=== PATIENT | male | born 1980 | race American Indian/Alaskan Native ===

== ENCOUNTER 2017-03-10 13:32 | Emergency (ER) | payer MEDICAID, OTHER ==
[2017-03-10 13:40] VITALS: BP 115/65
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
[2017-03-10 14:26] LABS: CHLORIDE,CL 112 mmol/L (101-111); SODIUM,NA 148 mmol/L (135-145)
== END 2017-03-10 15:15 | disposition home or self-care (01) ==
LOC: DL.ED 13:32
DX: S00.81XA Abrasion of other part of head, initial encounter (principal); F10.129 Alcohol abuse with intoxication, unspecified; Y90.8 Blood alcohol level of 240 mg/100 ml or more; G43.909 Migraine, unspecified, not intractable, without status migrainosus; Z98.890 Other specified postprocedural states; Y04.0XXA Assault by unarmed brawl or fight, initial encounter; Y92.411 Interstate highway as the place of occurrence of the external cause
CPT/HCPCS: 36415; 70486; 80053; 85025; 99284; G0480

== ENCOUNTER 2017-05-29 09:56 | Emergency (ER) | payer MEDICAID, OTHER ==
[2017-05-29 11:15] VITALS: BP 140/98
[2017-05-29] MEDS ORDERED: HYDROmorphone 1 MG/ML Syringe IM ONE (11:28)
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
--- NOTE | 2017-05-29 12:35 | CR ---
Clinical history: 36-year-old male injured right thumb (changing tire). Interpretation: Mild soft tissue swelling. No foreign bodies. No fracture or dislocation right thumb or the adjacent index finger. Apparent old healed (boxers) fracture deformity fifth metacarpal.
== END 2017-05-29 11:56 | disposition home or self-care (01) ==
LOC: DL.ED 09:56
DX: S60.011A Contusion of right thumb without damage to nail, initial encounter (principal); Z98.890 Other specified postprocedural states; X58.XXXA Exposure to other specified factors, initial encounter
CPT/HCPCS: 73140; 96372; 99283; J1170

== ENCOUNTER 2017-07-30 14:18 | Emergency (ER) | payer MEDICAID, OTHER ==
[2017-07-30] MEDS ORDERED: Lidocaine 1% 30 ML SDV INJECT ONE (14:20)
[2017-07-30] MEDS ORDERED: Bacitracin Oint 1 GM U/D Packet TOP ONE (14:20)
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
[2017-07-30 14:29] VITALS: BP 125/66
[2017-07-30] MEDS ORDERED: Acetaminophen/oxyCODONE 325-5 MG Tab PO ONE (15:04)
== END 2017-07-30 15:15 | disposition home or self-care (01) ==
LOC: DL.ED 14:18
DX: S51.812A Laceration without foreign body of left forearm, initial encounter (principal); W26.8XXA Contact with other sharp object(s), not elsewhere classified, initial encounter
CPT/HCPCS: 12002; 99282; A9270

== ENCOUNTER 2019-08-08 20:23 | Emergency (ER) | payer SELFPAY ==
[2019-08-08 20:46] VITALS: BP 116/74; PULSE 81
[2019-08-08] MEDS ORDERED: Bacitracin Oint 1 GM U/D Packet TOP ONE (20:50)
[2019-08-08] MEDS ORDERED: Lidocaine 1% with EPINEPHrine 1:100,000 20 ML MDV INJECT ONE (20:50)
[2019-08-08 21:02] LABS: ANION GAP 12.8; CHLORIDE,CL 112 mmol/L (101-111); SODIUM,NA 143 mmol/L (135-145)
[2019-08-08] MEDS ORDERED: Diphtheria,Pertussis(Acell),Tetanus Vaccine 0.5 ML SDV IM ONE (21:03)
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
== END 2019-08-08 21:30 ==
LOC: DL.ED 20:23
DX: S01.81XA Laceration without foreign body of other part of head, initial encounter (principal); F10.129 Alcohol abuse with intoxication, unspecified; Y90.8 Blood alcohol level of 240 mg/100 ml or more; Z23 Encounter for immunization; W20.8XXA Other cause of strike by thrown, projected or falling object, initial encounter
CPT/HCPCS: 12011; 36415; 70450; 72125; 80053; 85025; 90471; 90715; 99283; 99284-25; G0480

== ENCOUNTER 2019-10-14 16:43 | Emergency (ER) | payer SELFPAY ==
[2019-10-14 16:53] VITALS: BP 148/102; PULSE 91
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
== END 2019-10-14 19:05 | disposition home or self-care (01) ==
LOC: DL.ED 16:43
DX: M25.531 Pain in right wrist (principal); M79.641 Pain in right hand; F17.210 Nicotine dependence, cigarettes, uncomplicated; W19.XXXA Unspecified fall, initial encounter
CPT/HCPCS: 73130-RT; 99282; 99283-25

== ENCOUNTER 2019-11-18 00:34 | Emergency (ER) | payer SELFPAY ==
[2019-11-18 00:44] VITALS: BP 130/73; PULSE 84
[2019-11-18] MEDS ORDERED: Ibuprofen 600 MG Tab PO ONE (01:04)
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
== END 2019-11-18 01:09 | disposition home or self-care (01) ==
LOC: DL.ED 00:34
DX: S00.212A Abrasion of left eyelid and periocular area, initial encounter (principal); Y04.0XXA Assault by unarmed brawl or fight, initial encounter
CPT/HCPCS: 99282; A9270

== ENCOUNTER 2020-06-15 18:06 | Emergency (ER) | payer SELFPAY ==
[2020-06-15] MEDS ORDERED: Sodium Chloride 0.9% 1,000 ML IV ONE (18:16)
[2020-06-15] MEDS ORDERED: Sodium Chloride 0.9% 10 ML Syringe FLUSH PRN (18:17)
[2020-06-15] MEDS ORDERED: fentaNYL 100 MCG/2 ML SDV IVPUSH ONE (18:17)
[2020-06-15 18:35] VITALS: BP 111/72; PULSE 95
[2020-06-15 18:56] LABS: ANION GAP 14.7 mEq/L (7-13); CHLORIDE,CL 105 mmol/L (98-107); SODIUM,NA 141 mmol/L (136-145)
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
== END 2020-06-15 19:00 | disposition left against medical advice (07) ==
LOC: DL.ED 18:06
DX: Z53.21 Procedure and treatment not carried out due to patient leaving prior to being seen by health care provider (principal)
CPT/HCPCS: 36415; 74176; 80053; 80305; 81003; 85025; J3010; J7030

== ENCOUNTER 2020-10-26 02:05 | Emergency (ER) | payer SELFPAY ==
[2020-10-26 02:14] VITALS: BP 94/69; PULSE 80
[2020-10-26] MEDS ORDERED: Iopamidol 612 MG/ML 100 ML Bottle IVPUSH ONE (02:21)
[2020-10-26] MEDS ORDERED: Ondansetron 4 MG/2 ML SDV ONE (02:24)
[2020-10-26] MEDS ORDERED: Ondansetron 4 MG/2 ML SDV IVPUSH ONE (02:24)
[2020-10-26 02:48] LABS: ANION GAP 23.7 mEq/L (7-13)
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
[2020-10-26] MEDS ORDERED: MVI, Adult with Vitamin K 10 ML, Folic Acid 1 MG, Thiamine 100 MG in Lactated Ringers 1... IV ONE ×4 (05:40)
[2020-10-26] MEDS ORDERED: Sodium Chloride 0.9% 1,000 ML IV ONE (07:07)
== END 2020-10-26 08:39 ==
LOC: DL.ED 02:05
DX: S01.01XA Laceration without foreign body of scalp, initial encounter (principal); S40.012A Contusion of left shoulder, initial encounter; F15.90 Other stimulant use, unspecified, uncomplicated; F10.129 Alcohol abuse with intoxication, unspecified; Y90.6 Blood alcohol level of 120-199 mg/100 ml; Y04.0XXA Assault by unarmed brawl or fight, initial encounter
CPT/HCPCS: 12002; 36415; 70450; 71260; 72125; 72128; 72131; 73090; 74177; 80053; 80305; 80307; 81001; 82150; 83690; 85025; 85610; 96365; 96375; 99284; J2405; J3411; J7030; J7120; Q9967; 99283; J3490

== ENCOUNTER 2020-12-14 13:41 | Emergency (ER) | payer SELFPAY ==
[2020-12-14 13:49] VITALS: BP 139/91; PULSE 87
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
[2020-12-14] MEDS ORDERED: Ibuprofen 600 MG Tab PO ONE (15:10)
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
== END 2020-12-14 15:19 | disposition home or self-care (01) ==
LOC: DL.ED 13:41
DX: S63.91XA Sprain of unspecified part of right wrist and hand, initial encounter (principal); Z72.0 Tobacco use; Y04.0XXA Assault by unarmed brawl or fight, initial encounter
CPT/HCPCS: 73130; 99282; 99283; A9270

== ENCOUNTER 2020-12-22 23:07 | Emergency (ER) | payer SELFPAY ==
[2020-12-22 23:22] VITALS: BP 106/70; PULSE 112
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
[2020-12-22 23:51] LABS: ANION GAP 17.6 mEq/L (7-13); CHLORIDE,CL 107 mmol/L (98-107); SODIUM,NA 143 mmol/L (136-145)
[2020-12-22 23:53] LABS: ACETAMINOPHEN 0 ug/mL (10-30 (Therapeutic))
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
== END 2020-12-23 00:15 | disposition home or self-care (01) ==
LOC: DL.ED 23:07
DX: S60.221A Contusion of right hand, initial encounter (principal); S20.211A Contusion of right front wall of thorax, initial encounter; S00.03XA Contusion of scalp, initial encounter; F10.10 Alcohol abuse, uncomplicated; Y90.8 Blood alcohol level of 240 mg/100 ml or more; Z72.0 Tobacco use; Y04.0XXA Assault by unarmed brawl or fight, initial encounter
CPT/HCPCS: 36415; 70450; 71101-RT; 73130-RT; 80053; 80143; 80179; 80307; 83735; 85025; 99283; 99284-25

== ENCOUNTER 2021-01-01 00:21 | Emergency (ER) | payer SELFPAY ==
[2021-01-01 00:44] VITALS: BP 134/84; PULSE 103
[2021-01-01] MEDS ORDERED: MVI, Adult with Vitamin K 10 ML, Folic Acid 1 MG, Thiamine 100 MG in Lactated Ringers 1... IV ONE ×4 (00:48)
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
== END 2021-01-01 02:18 | disposition home or self-care (01) ==
LOC: DL.ED 00:21
DX: S60.221A Contusion of right hand, initial encounter (principal); F10.929 Alcohol use, unspecified with intoxication, unspecified; Y90.6 Blood alcohol level of 120-199 mg/100 ml; W22.8XXA Striking against or struck by other objects, initial encounter
CPT/HCPCS: 36415; 73130-RT; 80307; 96365; 99283; 99284-25; J3411; J3490; J7120

== ENCOUNTER 2021-01-02 18:20 | Emergency (ER) | payer SELFPAY ==
[2021-01-02] MEDS ORDERED: Sodium Chloride 0.9% 10 ML Syringe FLUSH PRN (18:23)
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
[2021-01-02 18:52] VITALS: PULSE 80
[2021-01-02 19:01] LABS: ANION GAP 14.7 mEq/L (7-13); CHLORIDE,CL 107 mmol/L (98-107); SODIUM,NA 141 mmol/L (136-145)
[2021-01-02 19:08] LABS: PTT,PARTIAL THROMBOPLSTIN TIME 26.1 SEC (22.0-34.0)
== END 2021-01-02 18:49 | disposition left against medical advice (07) ==
LOC: DL.ED 18:20
DX: R47.81 Slurred speech (principal); F10.10 Alcohol abuse, uncomplicated
CPT/HCPCS: 36415; 70450; 80053; 80305-QW; 81003; 84484; 85025; 85610; 85730; 99282; 99285-25

== ENCOUNTER 2021-02-15 14:01 | Emergency (ER) | payer SELFPAY ==
[2021-02-15] MEDS ORDERED: Sodium Chloride 0.9% 1,000 ML IV ONE (14:15)
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
[2021-02-15] MEDS ORDERED: MVI, Adult with Vitamin K 10 ML, Thiamine 100 MG, Folic Acid 1 MG in Lactated Ringers 1... IV ONE ×4 (14:19)
[2021-02-15 14:42] VITALS: BP 110/77; PULSE 62
[2021-02-15 14:45] LABS: ANION GAP 15.6 mEq/L (7-13); CHLORIDE,CL 108 mmol/L (98-107); SODIUM,NA 146 mmol/L (136-145)
== END 2021-02-15 16:30 | disposition home or self-care (01) ==
LOC: DL.ED 14:01
DX: F10.129 Alcohol abuse with intoxication, unspecified (principal); F15.129 Other stimulant abuse with intoxication, unspecified; Y90.8 Blood alcohol level of 240 mg/100 ml or more
CPT/HCPCS: 36415; 80053; 80305-QW; 80307; 81003; 83605; 83735; 85025; 86140; 96365; 99283; 99285-25; J3411; J3490; J7030; J7120

== ENCOUNTER 2021-02-26 19:50 | Emergency (ER) | payer SELFPAY ==
[2021-02-26 19:37] VITALS: BP 124/78; PULSE 87
[2021-02-26 20:05] LABS: ANION GAP 16.3 mEq/L (7-13); CHLORIDE,CL 108 mmol/L (98-107); SODIUM,NA 145 mmol/L (136-145)
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
== END 2021-02-26 20:29 | disposition left against medical advice (07) ==
LOC: DL.ED 19:50
DX: S21.131A Puncture wound without foreign body of right front wall of thorax without penetration into thoracic cavity, initial encounter (principal); S10.91XA Abrasion of unspecified part of neck, initial encounter; F10.129 Alcohol abuse with intoxication, unspecified; Y90.8 Blood alcohol level of 240 mg/100 ml or more; X58.XXXA Exposure to other specified factors, initial encounter
CPT/HCPCS: 36415; 71045; 80053; 80307; 85025; 99283; 99285-25

== ENCOUNTER 2021-03-07 15:27 | Emergency (ER) | payer SELFPAY ==
[2021-03-07 15:46] VITALS: BP 130/82; PULSE 94
[2021-03-07] MEDS ORDERED: Iopamidol 612 MG/ML 100 ML Bottle IVPUSH ONE (15:50)
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
[2021-03-07 16:44] LABS: ANION GAP 19.7 mEq/L (7-13); CHLORIDE,CL 103 mmol/L (98-107); SODIUM,NA 143 mmol/L (136-145)
[2021-03-07] MEDS ORDERED: Morphine 2 MG/ML SYRINGE IVPUSH ONE (17:06)
[2021-03-07 17:10] LABS: AMPHETAMINES,URINE NEGATIVE (NEGATIVE); BARBITURATES,URINE NEGATIVE (NEGATIVE); BENZODIAZEPINE,URINE NEGATIVE (NEGATIVE); MDMA (ECSTASY), URINE NEGATIVE (NEGATIVE); METHADONE,URINE NEGATIVE (NEGATIVE); METHAMPHETAMINES,URINE POSITIVE (NEGATIVE); OPIATES,URINE NEGATIVE (NEGATIVE); OXYCODONE,URINE NEGATIVE (NEGATIVE); PHENCYCLIDINE,URINE NEGATIVE (NEGATIVE); TCA,URINE NEGATIVE (NEGATIVE)
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
[2021-03-07] MEDS ORDERED: HYDROmorphone 0.5 MG/0.5 ML Syringe IVPUSH ONE (18:50)
== END 2021-03-07 19:24 | disposition home or self-care (01) ==
LOC: DL.ED 15:27
DX: L02.213 Cutaneous abscess of chest wall (principal); L03.313 Cellulitis of chest wall
CPT/HCPCS: 36415; 71260; 80053; 80305-QW; 80307; 81001; 84484; 85025; 85379; 93005; 96365; 96375; 99283; 99285-25; J1170; J2270; J3370; J7050; Q9967

== ENCOUNTER 2021-03-10 03:37 | Emergency (ER) | payer OTHER ==
[2021-03-10 03:59] VITALS: BP 127/77; PULSE 92
[2021-03-10] MEDS ORDERED: Ketorolac 30 MG/ML SDV IVPUSH ONE (04:12)
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
[2021-03-10 04:34] LABS: ANION GAP 19.4 mEq/L (7-13); CHLORIDE,CL 104 mmol/L (98-107); SODIUM,NA 145 mmol/L (136-145)
[2021-03-10 05:20] LABS: AMPHETAMINES,URINE NEGATIVE (NEGATIVE); BARBITURATES,URINE NEGATIVE (NEGATIVE); BENZODIAZEPINE,URINE NEGATIVE (NEGATIVE); MDMA (ECSTASY), URINE NEGATIVE (NEGATIVE); METHADONE,URINE NEGATIVE (NEGATIVE); METHAMPHETAMINES,URINE POSITIVE (NEGATIVE); OPIATES,URINE NEGATIVE (NEGATIVE); OXYCODONE,URINE POSITIVE (NEGATIVE); PHENCYCLIDINE,URINE NEGATIVE (NEGATIVE); TCA,URINE NEGATIVE (NEGATIVE)
== END 2021-03-10 06:11 | disposition home or self-care (01) ==
LOC: DL.ED 03:37
DX: S21.101D Unspecified open wound of right front wall of thorax without penetration into thoracic cavity, subsequent encounter (principal); F10.10 Alcohol abuse, uncomplicated; Y90.8 Blood alcohol level of 240 mg/100 ml or more; Z91.14 Patient's other noncompliance with medication regimen; W34.010D Accidental discharge of airgun, subsequent encounter
CPT/HCPCS: 36415; 80053; 80305; 80307; 83605; 85025; 87040; 96365; 96366; 96375; 99283; J1885; J3370; J7050

== ENCOUNTER 2022-08-22 04:07 | Emergency (ER) | payer OTHER ==
[2022-08-22] MEDS ORDERED: Sodium Chloride 0.9% 10 ML Syringe FLUSH PRN (04:32)
[2022-08-22] MEDS ORDERED: methylPREDNISolone Sodium Succinate 125 MG/2 ML SDV IVPUSH ONE (05:11)
[2022-08-22 05:18] LABS: ANION GAP 14.6 mEq/L (7-13)
[2022-08-22 05:36] VITALS: PULSE 75
[2022-08-22 06:29] VITALS: BP 130/85
== END 2022-08-22 06:08 ==
LOC: DL.ED 04:07
DX: R20.2 Paresthesia of skin (principal); Z79.899 Other long term (current) drug therapy
CPT/HCPCS: 36415; 70450; 71250; 72125; 72128; 72131; 74176; 80053; 80307; 81003; 83605; 85025; 96374; 99285; J2930; J3490